=== PATIENT | female | born 1965 | race Hispanic/Latino ===

== ENCOUNTER 2020-04-15 12:22 | Emergency (ER) | payer SELFPAY ==
--- NOTE | ~2020-04-15 | CT_ITS ---
EXAMINATION: CT abdomen pelvis w con EXAM DATE: 04/15/2020 15:33 INDICATION: Fall, abdominal pain subsequently. TECHNIQUE: Spiral CT of the abdomen and pelvis was performed following intravenous injection of 100 m L Omnipaque 350. Axial, coronal and sagittal images were reviewed. The dose-length product (DLP) fo r this examination was 268.83 mGy-cm. The exposure was tailored according to patient size (auto mA e xposure control), and iterative reconstruction (ASIR) was used as additional dose reduction technique . There is no prior study for comparison. FINDINGS: Study is limited due to patient motion. No solid organ laceration. The liver, spleen, adr enal glands and pancreas are unremarkable. There are cholecystectomy clips. Portal and splenic vein s are patent. Kidneys enhance symmetrically. There is no hydronephrosis. There is a left adnexal cystic mass measuring 4.3 cm, could be hemorrhagic cyst or endometrioma but can't exclude cystic ovar sonia neoplasm, would more likely be benign given absence of solid mural nodule identified within this. 6 week follow-up pelvic sonogram. There is moderate amount of diffuse bladder wall thickening, could be acute and/or chronic cystitis. Correlate with urinalysis. There is no retroperitoneal or pelvic lymphadenopathy. There are no findings to suggest appendicitis. The stomach and small bowel are unremarkable. There is expected amount of colonic stool. No free intraperitoneal gas. The heart is normal in size. T here are no pericardial or pleural effusions. The lung bases are unremarkable. There is mild chroni c appearing compression fracture superior endplate of T12 and a minimal one at the superior endplate of L4. IMPRESSION: 1. Diffuse bladder wall thickening, suspicious for acute and/or chronic cystitis. 2. Cystic left ovarian mass, could be hemorrhagic cyst, endometrioma or possibly cystic ovarian neop lasm; recommend 6 week follow-up pelvic sonogram. 3. No acute intra-abdominal or pelvic findings. Reviewed, dictated and finalized at location B. [employer] IMPRESSION: 1. Diffuse bladder wall thickening, suspicious for acute and/or chronic cystit is. 2. Cystic left ovarian mass, could be hemorrhagic cyst, endometrioma or possib ly cystic ovarian neoplasm; recommend 6 week follow-up pelvic sonogram. 3. No acute intra-abdominal or pelvic findings.
--- NOTE | ~2020-04-15 | CT_ITS ---
EXAMINATION: CT brain wo con EXAM DATE: 04/15/2020 15:33 INDICATION: Fall, transient loss of consciousness. Abdominal pain. TECHNIQUE: Spiral CT of the head was performed without contrast. Axial, coronal and sagittal images were reviewed. The dose-length product (DLP) for this examination was 605.33 mGy-cm. The exposure w as tailored according to patient size, and iterative reconstruction (ASIR) was used as additional dos e reduction technique. There is no prior study for comparison. FINDINGS: There is no acute intraparenchymal hemorrhage. No evidence of intraparenchymal brain mass lesion. No evidence of acute infarction. There is no mass effect or midline shift. The ventricles are normal in size. There are no extra-axial collections. There are no acute calvarial fractures. T he orbits are unremarkable. Soft tissue is unremarkable. The visualized sinuses and mastoid air jc ls are well aerated. IMPRESSION: 1. No acute intracranial findings. Reviewed, dictated and finalized at location B. [employer]
[2020-04-15 12:41] VITALS: BP 151/92; PULSE 80; RESP 18; TEMP 36.9; O2SAT 100
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
--- NOTE | 2020-04-15 13:37 | PC.NURSE ---
Called Caity to place IV. 2 RNs attempted with no success. Informed both charge nurse and Dr. Butler
--- NOTE | 2020-04-15 13:49 | PC.NURSE ---
Caity here for pt
[2020-04-15] MEDS: SODIUM CHLORIDE 0.9% IV 1,000 ML 999 ML IV CONT (14:18)
[2020-04-15] MEDS: fentaNYL CITRATE INJ (*CRX) 100 MCG/2 ML VIAL 25 MCG IV PUSH (14:23)
[2020-04-15] MEDS: ONDANSETRON INJ 4 MG/2 ML VIAL IV PUSH (14:25)
[2020-04-15 14:29] LABS: Basophils Absolute Auto 0.1 K/mm3 (0.0-0.1); Eosinophils Absolute Auto 0.3 K/mm3 (0-0.3); Eosinophils Percent Auto 4.5 % (0-4.4); Hematocrit 34.2 % (37.0-47.0); Hemoglobin 11.1 g/dL (12.0-15.0); Immature Granulocyte Absolute 0.01 K/mm3 (0.00-0.031); Immature Granulocyte Percent A 0.2 % (0-0.5); Lymphocytes Absolute Auto 1.82 K/mm3 (0.9-3.2); Lymphocytes Percent Auto 29.4 % (18.3-44.2); Mean Corpuscular HGB Conc 32.5 g/dl (32-36); Mean Corpuscular Hemoglobin 30.2 pg (26-34); Mean Corpuscular Volume 92.9 fl (80-100); Mean Platelet Volume 10.2 fl (7.4-10.4); Monocytes Absolute Auto 0.3 K/mm3 (0.1-0.6); Monocytes Percent Auto 4.2 % (2.6-8.5); Neutrophils Absolute Auto 3.8 K/mm3 (1.3-6.7); Neutrophils Percent Auto 60.7 % (45.5-73.1); Platelet Count Result 286 k/mm3 (150-375); Red Blood Count 3.68 M/mm3 (4.2-5.4); Red Cell Distribution Width 13.6 % (11.5-14.5); White Blood Count 6.2 K/mm3 (4.5-10.0)
[2020-04-15 14:31] LABS: Prothrombin Time 14.2 Seconds (11.1-14.7)
[2020-04-15 14:34] LABS: Partial Thromboplastin Time 28.4 SECONDS (22.3-36.8)
[2020-04-15 14:59] VITALS: BP 168/92; PULSE 69; RESP 18; O2SAT 100
[2020-04-15 14:59] LABS: Alanine Aminotransferase 23 U/L (4-35); Albumin Level 3.5 g/dL (3.5-5.1); Alkaline Phosphatase 87 U/L (38-126); Anion Gap 6 mmol/L (8-16); Aspartate Amino Transferase 43 U/L (14-36); Bilirubin,Total 0.3 mg/dL (0.2-1.3); Blood Urea Nitrogen 22 mg/dL (7-17); Calcium 8.5 mg/dL (8.4-10.2); Carbon Dioxide 20 mmol/L (22-30); Chloride 116 mmol/L (98-107); Estimated Glomerular Filt Rate 33; Glucose 92 mg/dL (65-105); Lipase 236 U/L (23-300); Potassium 3.7 mmol/L (3.4-5.0); Sodium 142 mmol/L (137-145)
[2020-04-15 15:02] LABS: Lactic Acid Reflex 0.6 mmol/L (0.7-2.1)
[2020-04-15 16:11] LABS: Add Urine Microscopic? YES; Appearance Urine Clear (Clear); Bacteria Urine Trace /hpf; Bilirubin Urine Negative (Negative); Blood Urine 2+ (Negative); Color Urine Yellow (Yellow); Glucose Urine UA Negative (Negative); Ketones Urine Negative (Negative); Leukocyte Esterase Ur Negative LEU/UL (Negative); Mucus Urine Rare /lpf; Nitrate Urine Negative (Negative); Protein Urine 3+ mg/dL (Negative); Specific Grav Ur 1.013 (1.001-1.035); Squamous Epithelial Cell Urine Occasional /hpf (Few); Urobilinogen Urine Negative mg/dL (<2.0)
[2020-04-15 16:38] VITALS: BP 152/94; PULSE 74; RESP 18; O2SAT 98
[2020-04-15] MEDS: NITROFURANTOIN MONOHYD MACROCR 100 MG CAP PO (17:49)
== END 2020-04-15 17:50 | disposition home or self-care (01) ==
PROVIDERS: Emergency Provider Emergency Medicine
DX: N39.0 Urinary tract infection, site not specified (principal); N83.202 Unspecified ovarian cyst, left side
CPT/HCPCS: 36415; 70450; 74177; 80053; 81001; 83605; 83690; 85025; 85610; 85730; 87040; 96361; 96374; 96375; 99284; A9270; J2405; J3010; J7030; Q9967